=== PATIENT | female | born 1980 | race American Indian/Alaskan Native ===

== ENCOUNTER 2017-03-12 00:15 | Emergency (ER) | payer OTHER ==
[2017-03-12 01:07] VITALS: BP 161/105
== END 2017-03-12 02:22 | disposition left against medical advice (07) ==
LOC: ED 00:15
DX: K08.89 Other specified disorders of teeth and supporting structures (principal); Z53.21 Procedure and treatment not carried out due to patient leaving prior to being seen by health care provider

== ENCOUNTER 2017-03-12 17:27 | Emergency (ER) | payer SELFPAY ==
--- NOTE | 2017-03-12 17:53 | Emergency Department Report ---
Chief Complaint: Dental/Oral Stated Complaint: TOOTHACHE/RT ARM NUMBNESS Time Seen by Provider: 03/12/17 17:49 - HPI History of Present Illness: PT states she had a R sided toothache x 2 days. PT states this morning she woke up with R arm numbness (1200) PT states she took a Tylenol #3 for the pain but no relief. - ROS Review of Systems: + numbness to R arm - weakness - Exam Vital Signs: Vital Signs 03/12/17 17:35 Temperature 99 F Pulse Rate 94 H Respiratory 20 Rate Blood Pressure 149/105 O2 Sat by Pulse 100 Oximetry Physical Exam: PT looks well, non toxic. no facial swelling noted no focal weakness gcs 15 MSE screening note: Focused history and physical exam performed. Due to findings the following was ordered: ct, ekg, lab ED Disposition for MSE Condition: Stable
[2017-03-12 19:02] LABS: Creatine Kinase MB 1.1 ng/mL (0.0-4.0)
[2017-03-12 19:04] LABS: Alanine Aminotransferase 7 units/L (7-56); Albumin 3.9 g/dL (3.9-5); Alkaline Phosphatase 89 units/L (35-129); Anion Gap 17 mmol/L; BUN/Creatinine Ratio 11.42; Blood Urea Nitrogen 8 mg/dL (7-17); Calcium 9.6 mg/dL (8.4-10.2); Carbon Dioxide 28 mmol/L (22-30); Chloride 98.7 mmol/L (98-107); Creatine Kinase 228 units/L (30-135); Glucose 95 mg/dL (65-100); Potassium 3.2 mmol/L (3.6-5.0); Sodium 140 mmol/L (137-145); Total Protein 7.9 g/dL (6.3-8.2)
[2017-03-12 19:13] LABS: Basophils % (Auto) 0.6 % (0.0-1.8); Eosinophils % (Auto) 2.5 % (0.0-4.3); Hematocrit 42.2 % (30.3-42.9); Hemoglobin 13.2 gm/dl (10.1-14.3); Mean Corpuscular HGB Conc 31 % (30-34); Mean Corpuscular Hemoglobin 27 pg (28-32); Mean Corpuscular Volume 86 fl (79-97); Platelet Count 265 K/mm3 (140-440); Red Blood Count 4.89 M/mm3 (3.65-5.03); Red Cell Distribution Width 13.3 % (13.2-15.2)
--- NOTE | 2017-03-12 19:14 | Cat Scan Report ---
FINAL REPORT EXAM: CT HEAD/BRAIN WO CON HISTORY: R arm numbness, hx of tia TECHNIQUE: Standard unenhanced CT of the head at 5.0 millimeter axial increments. PRIORS: None. FINDINGS: The ventricular system is normal in size and configuration. There is no evidence for parenchymal volume loss. There is no evidence for mass lesion, mass effect, midline shift, acute intracranial hemorrhage, or acute ischemia/ infarction. No evidence for acute skull fracture is seen. No abnormality in the overlying scalp soft tissues is seen. Visualized paranasal sinuses are clear. IMPRESSION: Negative CT of the head. No acute intracranial process noted.
[2017-03-12 19:23] LABS: INR 0.93 (0.87-1.13); Partial Thromboplastin Time 31.7 Sec. (24.2-36.6)
[2017-03-12 20:49] VITALS: BP 168/108
== END 2017-03-12 21:00 | disposition other institution (70) ==
LOC: ED 17:27
DX: K08.89 Other specified disorders of teeth and supporting structures (principal); Z53.21 Procedure and treatment not carried out due to patient leaving prior to being seen by health care provider
CPT/HCPCS: 36415; 70450; 80053; 82550; 82553; 84484; 84703; 85025; 85610; 85670; 85730

== ENCOUNTER 2017-03-13 08:29 | Emergency (ER) | payer SELFPAY ==
[2017-03-13 08:48] VITALS: BP 139/93
[2017-03-13] MEDS ORDERED: MOTRIN PO ONE (10:29)
--- NOTE | 2017-03-13 10:29 | Emergency Department Report ---
HPI - General Chief Complaint: Dental/Oral Time Seen by Provider: 03/13/17 10:21 - HPI HPI: The patient is a 36-year-old female who presents to ED complaining of 8/10 pain in the right side of his mouth x 3 days . Patient states that the pain started 5 days ago and has increased in severity over the last day. The pain is exacerbated by eating and opening of the mouth. Patient states that it radiates towards ear. Patient describes a as a throbbing, pressure-like sensation. Patient states otherwise well and has no other complaints. Patient has had no fevers and no chills. No chest pain, no shortness of breath. No abdominal pain. No shortness of breath or recent trauma to the face. ED Past Medical Hx - Past Medical History Previous Medical History?: Yes Hx Hypertension: Yes (DX AT AGE 30) Hx CVA: Yes Hx Heart Attack/AMI: No Hx Congestive Heart Failure: No Hx Diabetes: No Hx Deep Vein Thrombosis: No Hx Liver Disease: No Hx Renal Disease: No Hx Sickle Cell Disease: No Hx Seizures: No Hx Asthma: No Hx COPD: No Hx HIV: No - Surgical History Past Surgical History?: Yes Hx Breast Surgery: Yes Additional Surgical History: Breast reduction - Social History Smoking Status: Current Every Day Smoker Substance Use Type: Prescribed - Medications Home Medications: Home Medications Medication Instructions Recorded Confirmed Last Taken Type HYDROcodone/APAP 5-325 [[place] 1 each PO Q6HR PRN #20 tablet 06/01/15 Unknown Rx 5/325] Methocarbamol [Robaxin TAB] 750 mg PO Q8H PRN #21 tablet 06/01/15 Unknown Rx amLODIPine [Norvasc] 5 mg PO DAILY 06/01/15 06/01/15 Unknown History amLODIPine [Norvasc] 10 mg PO DAILY #30 tab 06/01/15 Unknown Rx Acetaminophen/Codeine [Tylenol 1 tab PO Q6H PRN #10 tab 03/13/17 Unknown Rx /Codeine # 3 tab] Clindamycin [Clindamycin CAP] 300 mg PO BID #20 capsule 03/13/17 Unknown Rx Ibuprofen [Motrin 800 MG tab] 800 mg PO TID #30 tablet 03/13/17 Unknown Rx ED Review of Systems ROS: Stated complaint: TOOTH PAIN / SWOLLEN GUMS Other details as noted in HPI Constitutional: denies: chills, fever Eyes: denies: eye pain, eye discharge, vision change ENT: denies: ear pain, throat pain Respiratory: denies: cough, shortness of breath, wheezing Cardiovascular: denies: chest pain, palpitations Endocrine: no symptoms reported Gastrointestinal: denies: abdominal pain, nausea, diarrhea Genitourinary: denies: urgency, dysuria, discharge Musculoskeletal: denies: back pain, joint swelling, arthralgia Skin: denies: rash, lesions Neurological: denies: headache, weakness, paresthesias Psychiatric: denies: anxiety, depression Hematological/Lymphatic: denies: easy bleeding, easy bruising Physical Exam - Physical Exam Vital Signs: Vital Signs 03/13/17 08:44 Temperature 98.8 F Pulse Rate 77 Respiratory 18 Rate Blood Pressure 139/93 O2 Sat by Pulse 100 Oximetry Physical Exam: GENERAL: Alert and oriented x3, no apparent distress, Normal Gait, atraumatic. HEAD: Head is normocephalic and a-traumatic. EARS: symetrical, atraumatic, non tender, ear canal clear and moderate cerumen, tympanic membrance non inflamed. gross auditory nml bilaterally. MOUTH:Mouth is well hydrated and without lesions. Tonsils nonerythematous or swollen, Uvula midline, Tongue not elevated. Mucous membranes are moist. Posterior pharynx clear, no exudate or lesions. Patent airways. Partially missing tooth on to #30, dental caries visualize, no gingival enlargement, no active bleeding NECK: Supple. Non edematous, No lymphadenopathy or thyromegaly. LUNGS: Symetrical with respiration, No wheezing, no rales or crackles, CTAB. HEART: S1, S2 present, regular rate and rhythm without murmur, no rubs, no gallops. Non tender to palpation ABDOMEN: No organomegaly was noted,Positive bowel sounds, soft, and non- distended. . Nontender to palpation on all Quadrants, NO CVA SKIN: Warm and dry, No lesions, No ulceration or induration present. ED Course Vital Signs 03/13/17 08:44 Temperature 98.8 F Pulse Rate 77 Respiratory 18 Rate Blood Pressure 139/93 O2 Sat by Pulse 100 Oximetry ED Medical Decision Making - Radiology Data Radiology results: report reviewed, image reviewed FINAL REPORT EXAM: CT HEAD/BRAIN WO CON HISTORY: R arm numbness, hx of tia TECHNIQUE: Standard unenhanced CT of the head at 5.0 millimeter axial increments. PRIORS: None. FINDINGS: The ventricular system is normal in size and configuration. There is no evidence for parenchymal volume loss. There is no evidence for mass lesion, mass effect, midline shift, acute intracranial hemorrhage, or acute ischemia/ infarction. No evidence for acute skull fracture is seen. No abnormality in the overlying scalp soft tissues is seen. Visualized paranasal sinuses are clear. IMPRESSION: Negative CT of the head. No acute intracranial process noted. Transcribed By: [facility] Dictated By: YASH GOODMAN MD Electronically Authenticated By: YASH GOODMAN MD Signed Date/Time: 03/12/171912 - Medical Decision Making 36-year-old female who presents with right-sided Facial pain secondary to odontogenic caries ED course: Patient received 300 mg of clindamycin and 800 mg of Motrin Odontogenic infection versus ear infection. Based upon history and physical examination, pain is a result of an infection of tooth number 30 and that the pain . Pt feels on the right side of his face and towards the ear is referred pain from this infectious process. Pt has no evidence of acute impending airway compromise. At this point, patient will be discharged home on some antibiotics and pain trial, she will do well with an outpatient course of antibiotics. Follow up with the Dental Clinic as referred Vital signs are normal patient is in no acute distress. Pt had an effect uneventful ED stay. She was here in the ED yesterday but left without treatment and she returns today. So CT scan, CBC, BMP, cardiac enzymes, test was conducted All labs within normal limits, CT scan negative see results above Critical care attestation.: If time is entered above; I have spent that time in minutes in the direct care of this critically ill patient, excluding procedure time. ED Disposition Clinical Impression: Dental caries, Pain, dental Disposition: DC-01 TO HOME OR SELFCARE Is pt being admited?: No Does the pt Need Aspirin: No Condition: Stable Instructions: Dental Caries (ED), Toothache (ED) Additional Instructions: keep appointment with your dentist and follow-up with dentist Otherwise follow-up with dental referrals Prescriptions: Acetaminophen/Codeine [Tylenol /Codeine # 3 tab] 1 tab PO Q6H PRN #10 tab PRN Reason: Pain Clindamycin [Clindamycin CAP] 300 mg PO BID #20 capsule Ibuprofen [Motrin 800 MG tab] 800 mg PO TID #30 tablet Referrals: PRIMARY CARE, [Primary Care Provider] - 3-5 Days [facility] [Outside] - 3-5 Days [facility] [Outside] - 3-5 Days Forms: Work/School Release Form(ED) Time of Disposition: 10:37
[2017-03-13] MEDS ORDERED: CLEOCIN PO ONE (10:30)
== END 2017-03-13 10:52 | disposition home or self-care (01) ==
LOC: ED 08:29
DX: K02.9 Dental caries, unspecified (principal); I10 Essential (primary) hypertension; Z86.73 Personal history of transient ischemic attack (TIA), and cerebral infarction without residual deficits; F17.200 Nicotine dependence, unspecified, uncomplicated; Z88.0 Allergy status to penicillin; Z91.010 Allergy to peanuts
CPT/HCPCS: 99282

== ENCOUNTER 2017-10-10 20:14 | Emergency (ER) | payer SELFPAY ==
[2017-10-10 21:00] VITALS: BP 151/102
[2017-10-10] MEDS ORDERED: ZOFRAN ODT PO ONE (21:22)
[2017-10-10] MEDS ORDERED: TYLENOL PO ONE (21:22)
[2017-10-10] MEDS ORDERED: MOTRIN PO ONE (21:22)
--- NOTE | 2017-10-10 21:30 | Emergency Department Report ---
ED General Adult HPI - General Chief complaint: Upper Respiratory Infection Stated complaint: FEVER, BODY ACHES Time Seen by Provider: 10/10/17 21:21 Source: patient Mode of arrival: Ambulatory Limitations: No Limitations - History of Present Illness Initial comments: Patient is a 37-year-old female no significant past medical history who presents with body aches and nausea and vomiting that has been going on for the last couple of days. Patient states that she has tried some home remedies for her symptoms but they have not been successful in improving her symptoms. Patient states body pain as a 6 out of 10 and is located throughout her body. Patient also states that sometimes she has episodes of posttussive emesis. Patient denies having any fever however sees subjectively feels warm. Severity scale (0 -10): 6 - Related Data Home Medications Medication Instructions Recorded Confirmed Last Taken amLODIPine [Norvasc] 5 mg PO DAILY 06/01/15 06/01/15 Unknown Previous Rx's Medication Instructions Recorded Last Taken Type HYDROcodone/APAP 5-325 [[place] 1 each PO Q6HR PRN #20 tablet 06/01/15 Unknown Rx 5/325] Methocarbamol [Robaxin TAB] 750 mg PO Q8H PRN #21 tablet 06/01/15 Unknown Rx amLODIPine [Norvasc] 10 mg PO DAILY #30 tab 06/01/15 Unknown Rx Acetaminophen/Codeine [Tylenol 1 tab PO Q6H PRN #10 tab 03/13/17 Unknown Rx /Codeine # 3 tab] Clindamycin [Clindamycin CAP] 300 mg PO BID #20 capsule 03/13/17 Unknown Rx Ibuprofen [Motrin 800 MG tab] 800 mg PO TID #30 tablet 03/13/17 Unknown Rx Acetaminophen 500 mg PO Q6H #30 tablet 10/10/17 Unknown Rx Ondansetron [Zofran Odt] 4 mg PO Q12HR #20 tab.rapdis 10/10/17 Unknown Rx Allergies Allergy/AdvReac Type Severity Reaction Status Date / Time Penicillins AdvReac Swelling Verified 10/05/13 11:55 celery Allergy Shortness Uncoded 05/16/14 08:31 of Breath peanuts Allergy Shortness Uncoded 05/16/14 08:30 of Breath ED Review of Systems ROS: Stated complaint: FEVER, BODY ACHES Other details as noted in HPI Constitutional: denies: chills, fever Eyes: denies: eye pain, eye discharge, vision change ENT: denies: ear pain, throat pain Respiratory: denies: cough, shortness of breath, wheezing Cardiovascular: denies: chest pain, palpitations Endocrine: no symptoms reported Gastrointestinal: denies: abdominal pain, nausea, diarrhea Genitourinary: denies: urgency, dysuria, discharge Musculoskeletal: myalgia. denies: back pain, joint swelling, arthralgia Skin: denies: rash, lesions Neurological: denies: headache, weakness, paresthesias Psychiatric: denies: anxiety, depression Hematological/Lymphatic: denies: easy bleeding, easy bruising ED Past Medical Hx - Past Medical History Previous Medical History?: Yes Hx Hypertension: Yes (DX AT AGE 30) Hx CVA: Yes Hx Heart Attack/AMI: No Hx Congestive Heart Failure: No Hx Diabetes: No Hx Deep Vein Thrombosis: No Hx Liver Disease: No Hx Renal Disease: No Hx Sickle Cell Disease: No Hx Seizures: No Hx Asthma: No Hx COPD: No Hx HIV: No - Surgical History Past Surgical History?: Yes Hx Breast Surgery: Yes Additional Surgical History: Breast reduction - Social History Smoking Status: Former Smoker Substance Use Type: None - Medications Home Medications: Home Medications Medication Instructions Recorded Confirmed Last Taken Type HYDROcodone/APAP 5-325 [[place] 1 each PO Q6HR PRN #20 tablet 06/01/15 Unknown Rx 5/325] Methocarbamol [Robaxin TAB] 750 mg PO Q8H PRN #21 tablet 06/01/15 Unknown Rx amLODIPine [Norvasc] 5 mg PO DAILY 06/01/15 06/01/15 Unknown History amLODIPine [Norvasc] 10 mg PO DAILY #30 tab 06/01/15 Unknown Rx Acetaminophen/Codeine [Tylenol 1 tab PO Q6H PRN #10 tab 03/13/17 Unknown Rx /Codeine # 3 tab] Clindamycin [Clindamycin CAP] 300 mg PO BID #20 capsule 03/13/17 Unknown Rx Ibuprofen [Motrin 800 MG tab] 800 mg PO TID #30 tablet 03/13/17 Unknown Rx Acetaminophen 500 mg PO Q6H #30 tablet 10/10/17 Unknown Rx Ondansetron [Zofran Odt] 4 mg PO Q12HR #20 tab.rapdis 03/28/18 Unknown Rx ED Physical Exam - General Limitations: No Limitations General appearance: alert, in no apparent distress - Head Head exam: Present: atraumatic, normocephalic - Eye Eye exam: Present: normal appearance - ENT ENT exam: Present: mucous membranes moist - Neck Neck exam: Present: normal inspection - Respiratory Respiratory exam: Present: normal lung sounds bilaterally. Absent: respiratory distress - Cardiovascular Cardiovascular Exam: Present: regular rate, normal rhythm. Absent: systolic murmur, diastolic murmur, rubs, gallop - GI/Abdominal GI/Abdominal exam: Present: soft, normal bowel sounds - Extremities Exam Extremities exam: Present: normal inspection - Back Exam Back exam: Present: normal inspection - Neurological Exam Neurological exam: Present: alert, oriented X3 - Psychiatric Psychiatric exam: Present: normal affect, normal mood - Skin Skin exam: Present: warm, dry, intact, normal color. Absent: rash ED Course Vital Signs 10/10/17 10/10/17 10/10/17 20:29 20:46 20:58 Temperature 98.7 F 98.7 F Pulse Rate 92 H 92 H 91 H Respiratory 18 18 18 Rate Blood Pressure 157/114 157/114 Blood Pressure 151/102 [Left] O2 Sat by Pulse 99 99 98 Oximetry ED Medical Decision Making - Medical Decision Making Cdx: Influenza ddx: Gastritis, Tension headache I will give patient oral pain medication and antiemetic medication. . Discussed outpatient followup with patient and patient agrees plan to be discharged additional verbal discharge instructions were given. Critical care attestation.: If time is entered above; I have spent that time in minutes in the direct care of this critically ill patient, excluding procedure time. ED Disposition Clinical Impression: Influenza Nausea and vomiting Qualifiers: Vomiting type: unspecified Vomiting Intractability: non-intractable Qualified Code(s): R11.2 - Nausea with vomiting, unspecified Disposition: - TO HOME OR SELFCARE Is pt being admited?: No Does the pt Need Aspirin: No Condition: Stable Prescriptions: Acetaminophen 500 mg PO Q6H #30 tablet Ondansetron [Zofran Odt] 4 mg PO Q12HR #20 tab.rapdis Referrals: USAMA WHITAKER MD [Staff Physician] - 3-5 Days
== END 2017-10-10 21:41 | disposition home or self-care (01) ==
LOC: ED 20:14
DX: J11.1 Influenza due to unidentified influenza virus with other respiratory manifestations (principal); I10 Essential (primary) hypertension; Z86.73 Personal history of transient ischemic attack (TIA), and cerebral infarction without residual deficits; Z87.891 Personal history of nicotine dependence; Z91.010 Allergy to peanuts; Z88.0 Allergy status to penicillin; Z91.018 Allergy to other foods
CPT/HCPCS: 99282; Q0162